=== PATIENT | female | born 1950 | race Caucasian/White ===

== ENCOUNTER 2018-12-07 08:53 | Outpatient (CLI) | payer MEDICARE, OTHER ==
--- NOTE | 2018-12-07 10:47 | BD ---
DEXA BONE DENSITOMETRY: (Dual energy X-ray Absorptiometry) DATE: 12-07-18 HISTORY: 68-year-old menopausal white female for age-related osteoporosis screening examination. Height: 66.5 inches Weight: 184 pounds Age of menopause: 49 years COMPARISON: None available. FINDINGS: The bone mineral density (BMD) is given in grams per square centimeter (g/cm2): LUMBAR SPINE: BMD(g/cm2) T-score Z-score L1: 0.880 -1.0 0.7 L2: 0.869 -1.4 0.4 L3: 0.970 -1.0 1.0 L4: 0.985 -0.7 1.4 Total: 0.933 -1.0 0.9 HIP: Femoral neck: 0.732 -1.1 0.6 Total: 0.771 -1.4 -0.1 FRAX WHO Fracture Risk Assessment Tool: 10 Year Fracture Risk * Major osteoporotic fracture: 8.4% Hip fracture: 0.7% Reported Risk Factors: [place](), Neck BMD=0.732, BMI=29.3 * Fracture probability is calculated for an untreated patient. Fracture probability may be lower if the patient has received treatment. IMPRESSION: 1) The mean bone mineral density of the lumbar spine is normal. Fracture risk is not increased. 2) The bone mineral density of the femoral neck is osteopenic. Fracture risk is increased. TESS [facility]ila POS: TPC
== END 2018-12-07 08:54 | disposition home or self-care (01) ==
LOC: BICMAMMO 08:53
PROVIDERS: ATTEND Internal Medicine
DX: Z12.31 Encounter for screening mammogram for malignant neoplasm of breast (principal); M81.0 Age-related osteoporosis without current pathological fracture; M85.88 Other specified disorders of bone density and structure, other site; R92.1 Mammographic calcification found on diagnostic imaging of breast
CPT/HCPCS: 77063; 77067; 77080

== ENCOUNTER 2020-12-09 09:23 | Outpatient (CLI) | payer MEDICARE, OTHER ==
--- NOTE | 2020-12-09 10:07 | BD ---
EXAM: DEXA bone density examination HISTORY: 70-year-old postmenopausal female for screening COMPARISON: 12/07/2018 FINDINGS: L1--bone mineral density 0.832 g/sq cm; T score -1.4 L2--bone mineral density 0.859 g/sq cm; T score -1.5 L3--bone mineral density 0.947 g/sq cm; T score -1.2 L4--bone mineral density 0.962 g/sq cm; T score -0.9 Total L1-L4--bone mineral density 0.907 g/sq cm; T score -1.3 Left femoral neck--bone mineral density0.723; T score -1.1 Total proximal left femur--bone mineral density 0.746; T score -1.6 IMPRESSION: Osteopenia. This patient has a 10 year WHO fracture risk of a major osteoporotic fracture of 8.8% and of a hip fracture of 0.9%.
== END 2020-12-09 09:24 | disposition home or self-care (01) ==
LOC: BICMAMMO 09:23
PROVIDERS: ATTEND Internal Medicine
DX: M85.89 Other specified disorders of bone density and structure, multiple sites (principal)
CPT/HCPCS: 77080

== ENCOUNTER 2021-11-03 10:02 | Outpatient (CLI) | payer MEDICARE, OTHER | END 2021-11-03 10:03 | disposition home or self-care (01) | LOC: BICMAMMO 10:02 | PROVIDERS: ATTEND Internal Medicine | DX: Z12.31 Encounter for screening mammogram for malignant neoplasm of breast (principal) | CPT/HCPCS: 77063; 77067 ==

== ENCOUNTER 2023-03-02 08:36 | Outpatient (CLI) | payer MEDICARE, OTHER | END 2023-03-02 08:37 | disposition home or self-care (01) | LOC: BICMAMMO 08:36 | PROVIDERS: ATTEND Internal Medicine | DX: M85.89 Other specified disorders of bone density and structure, multiple sites (principal); Z78.0 Asymptomatic menopausal state | CPT/HCPCS: 77080 ==

== ENCOUNTER 2024-07-11 10:48 | Outpatient (CLI) | payer MEDICARE, OTHER | END 2024-07-11 10:49 | disposition home or self-care (01) | LOC: BICMAMMO 10:48 | PROVIDERS: ATTEND Internal Medicine | DX: Z12.31 Encounter for screening mammogram for malignant neoplasm of breast (principal); M85.89 Other specified disorders of bone density and structure, multiple sites; Z78.0 Asymptomatic menopausal state | CPT/HCPCS: 77067; 77080 ==